=== PATIENT | female | born 1935 | race Two or more races ===

== ENCOUNTER 2019-04-30 11:04 | Outpatient (CLI) | payer OTHER ==
[~2019-04-30] VITALS: Ht 154.9 cm; Wt 68.0 kg
== END 2019-04-30 12:43 | disposition home or self-care (01) ==
LOC: OFIC 805 11:04
DX: J31.0 Chronic rhinitis (principal); R49.1 Aphonia; J38.02 Paralysis of vocal cords and larynx, bilateral; H61.21 Impacted cerumen, right ear; F03.90 Unspecified dementia, unspecified severity, without behavioral disturbance, psychotic disturbance, mood disturbance, and anxiety

== ENCOUNTER 2019-04-30 15:03 | Outpatient (CLI) | payer OTHER | END 2019-04-30 15:07 | disposition home or self-care (01) | LOC: LAB 15:03 | DX: N20.0 Calculus of kidney (principal) ==

== ENCOUNTER 2019-05-21 11:39 | Outpatient (CLI) | payer OTHER ==
[~2019-05-21] VITALS: Ht 152.4 cm; Wt 68.0 kg
== END 2019-05-21 14:49 | disposition home or self-care (01) ==
LOC: OFIC 805 11:39
DX: J31.0 Chronic rhinitis (principal); R49.8 Other voice and resonance disorders; J38.01 Paralysis of vocal cords and larynx, unilateral; F03.90 Unspecified dementia, unspecified severity, without behavioral disturbance, psychotic disturbance, mood disturbance, and anxiety